=== PATIENT | female | born 1995 | race African-American/Black ===

== ENCOUNTER 2023-03-12 16:35 | Emergency (ER) | payer BC, SELFPAY ==
[2023-03-12 16:48] VITALS: BP 106/67; PULSE 74; RESP 20; TEMP 36.2; O2SAT 100
--- NOTE | 2023-03-12 16:51 | ECG_ITS ---
Measurements Intervals [place] Rate: 75 P: 57 MI: 159 QRS: 8 QRSD: 85 T: 18 QT: 346 QTc: 387 Interpretive Statements SINUS RHYTHM EARLY PRECORDIAL R/S TRANSITION BORDERLINE ECG NO PREVIOUS ECG AVAILABLE FOR COMPARISON Electronically Signed On 03-12-2023 20:59:47 CDT by Gabriel Rosario D.O.
[2023-03-12 18:35] VITALS: BP 117/74; PULSE 78
[2023-03-12 18:39] VITALS: BP 117/92; PULSE 80
[2023-03-12 18:42] VITALS: BP 127/75; PULSE 105
[2023-03-12] MEDS: LACTATED RINGERS 1,000 ML 999 ML IV CONT (20:13)
[2023-03-12 20:20] LABS: Basophils Percent Auto 0.4 % (0.2-1.2); Eosinophils Absolute Auto 0.1 K/mm3 (0-0.3); Eosinophils Percent Auto 1.1 % (0-4.4); Hematocrit 37.4 % (37.0-47.0); Hemoglobin 12.4 g/dL (12.0-15.0); Immature Granulocyte Absolute 0.02 K/mm3 (0.00-0.031); Immature Granulocyte Percent A 0.3 % (0-0.5); Lymphocytes Absolute Auto 2.32 K/mm3 (0.9-3.2); Lymphocytes Percent Auto 31.9 % (18.3-44.2); Mean Corpuscular HGB Conc 33.2 g/dl (32-36); Mean Corpuscular Hemoglobin 30.8 pg (26-34); Mean Corpuscular Volume 92.8 fl (80-100); Mean Platelet Volume 10.4 fl (7.4-10.4); Monocytes Absolute Auto 0.5 K/mm3 (0.1-0.6); Monocytes Percent Auto 6.5 % (2.6-8.5); Neutrophils Absolute Auto 4.4 K/mm3 (1.3-6.7); Neutrophils Percent Auto 59.8 % (45.5-73.1); Platelet Count Result 250 k/mm3 (150-375); Red Blood Count 4.03 M/mm3 (4.2-5.4); Red Cell Distribution Width 12.7 % (11.5-14.5); White Blood Count 7.3 K/mm3 (4.5-10.0)
--- NOTE | 2023-03-12 20:22 | ED.SYNCOPE ---
HPI - Syncope General Chief Complaint: Syncope Stated Complaint: syncope Time Seen by Provider: 03/12/23 18:54 History of Present Illness HPI narrative: Patient is a 27-year-old female presenting after a syncopal episode. Patient states that she donated blood for the first time earlier this afternoon. She returned to work afterwards and then had an episode of severe lightheadedness that resulted in syncope. States that she was really sweaty and nauseated. She denies any chest pain, shortness of breath, palpitations, numbness or weakness, vomiting, leg swelling. Currently denies complaints. Related Data Allergies Allergy/AdvReac Type Severity Reaction Status Date / Time No Known Allergies Allergy Verified 03/12/23 16:36 Review of Systems Review of Systems: All systems reviewed & are unremarkable except as noted in HPI and below Exam Narrative: GENERAL: Well-appearing, well-nourished, and in no acute distress. HEAD: Normocephalic, atraumatic. EYES: PERRLA and EOMI. ENT: Nares clear, no rhinorrhea or epistaxis. Mucous membranes moist. NECK: Supple. CHEST: Clear to auscultation. No respiratory distress. HEART: Regular rate and rhythm. No murmur heard. Normal peripheral pulses. ABDOMEN: Soft, nontender, nondistended, normal active bowel sounds. EXTREMITIES: Normal range of motion. No edema. SKIN: Warm, dry, no rash. NEURO: No focal deficits. Alert and oriented x3. PSYCH: Normal mood and affect. Course Vital Signs Vital signs: Vital Signs Temperature 97.1 F L 03/12/23 16:48 Pulse Rate 74 03/12/23 16:48 Respiratory Rate 20 03/12/23 16:48 Blood Pressure 106/67 03/12/23 16:48 Pulse Oximetry 100 03/12/23 16:48 Oxygen Delivery Room Air 03/12/23 16:48 Temperature 97.1 F L 03/12/23 16:48 Pulse Rate 84 03/12/23 22:05 Respiratory Rate 15 03/12/23 22:05 Blood Pressure 106/54 L 03/12/23 22:05 Pulse Oximetry 100 03/12/23 22:05 Oxygen Delivery Room Air 03/12/23 16:48 MDM - Syncope MDM Narrative Medical decision making narrative: 27-year-old female presenting after a syncopal episode after donating blood. Vitals here are within normal limits. Patient is well-appearing and in no acute distress. She denies any complaints. EKG per my interpretation shows normal sinus rhythm, normal axis and intervals, no acute ischemic changes. Blood work is unremarkable. Normal hemoglobin. I suspect a vasovagal syncope given the blood donation and description of her symptoms. She denies any complaints at this time. She has received fluids and feels well. Feel she is safe for outpatient management. She is agreeable with this plan. Discharged in stable condition. Differential Diagnosis Differential diagnosis: Likely syncope due to orthostatic hypotension, vasovagal syncope and dehydration Medical Records Attestation: I reviewed the patient's medical records. Lab Data Attestation: I reviewed the patient's lab results. 03/12/23 20:06 03/12/23 20:06 Labs: Lab Results 03/12/23 Range/Units 20:06 WBC 7.3 (4.5-10.0) K/mm3 RBC 4.03 L (4.2-5.4) M/mm3 Hgb 12.4 (12.0-15.0) g/dL Hct 37.4 (37.0-47.0) % MCV 92.8 (80-100) fl MCH 30.8 (26-34) pg MCHC 33.2 (32-36) g/dl RDW 12.7 (11.5-14.5) % Plt Count 250 (150-375) k/mm3 MPV 10.4 (7.4-10.4) fl Immature Gran % (Auto) 0.3 (0-0.5) % Neut % (Auto) 59.8 (45.5-73.1) % Lymph % (Auto) 31.9 (18.3-44.2) % Davis % (Auto) 6.5 (2.6-8.5) % Eos % (Auto) 1.1 (0-4.4) % Baso % (Auto) 0.4 (0.2-1.2) % Lymph # (Auto) 2.32 (0.9-3.2) K/mm3 Davis # (Auto) 0.5 (0.1-0.6) K/mm3 Eos # (Auto) 0.1 (0-0.3) K/mm3 Baso # (Auto) 0.0 (0.0-0.1) K/mm3 Abs Immat Gran (auto) 0.02 (0.00-0.031) K/mm3 Absolute Neuts (auto) 4.4 (1.3-6.7) K/mm3 Absolute Nucleated RBC 0.0 (0.0-0.012) K/mm3 Nucleated RBC % 0.0 (0.0-0.2) % Sodium 138 (137-145) mmol/L Potassium 3.8 (3.4-5.0) mmol/L
[2023-03-12 20:24] VITALS: BP 114/81; PULSE 89; RESP 16; O2SAT 100
[2023-03-12 20:32] LABS: Alanine Aminotransferase 20 U/L (6-35); Albumin Level 4.1 g/dL (3.5-5.1); Alkaline Phosphatase 57 U/L (38-126); Anion Gap 9 mmol/L (8-16); Aspartate Amino Transferase 26 U/L (14-36); Bilirubin,Total 0.3 mg/dL (0.2-1.3); Blood Urea Nitrogen 9 mg/dL (7-17); Calcium 8.8 mg/dL (8.4-10.2); Carbon Dioxide 27 mmol/L (22-30); Chloride 102 mmol/L (98-107); Estimated CRCL calculation 113 ml/min; Estimated Glomerular Filt Rate > 60; Glucose 80 mg/dL (65-110); Potassium 3.8 mmol/L (3.4-5.0); Sodium 138 mmol/L (137-145)
[2023-03-12 22:05] VITALS: BP 106/54; PULSE 84; RESP 15; O2SAT 100
== END 2023-03-12 22:06 | disposition home or self-care (01) ==
PROVIDERS: Emergency Medicine; Emergency Provider Emergency Medicine
DX: R55 Syncope and collapse (principal)
CPT/HCPCS: 36415; 80053; 85025; 93005; 96360; 96361; 99284; J7120